=== PATIENT | female | born 1970 | race Caucasian/White ===

== ENCOUNTER 2016-09-29 09:09 | Day surgery (SDC) | payer OTHER ==
[~2016-09-29 09:09] MED LIST: ACETAMINOPHEN 500 MG TABLET PO PRN; ONDANSETRON HCL/PF 2 MG/ML VIAL IV PRN; RINGERS SOLUTION,LACTATED 1,000 ML IV PRN; ROPIVACAINE HCL/PF 40 MG in NORMAL SALINE 16 ML IJ PRN; ceFAZolin SODIUM 1 GM VIAL IV PRN
--- OUTSIDE RECORDS SUMMARY | 2016-09-29 09:12 | XMS REPORT | Continuity of Care Document ---
:1970 Author Organization [facility] ([facility]) Address [address] [place] [address] Phone [phone] Care Team Providers Name Role Phone Provider, No-Primary Care Primary Care Provider Unavailable Source Comments This disclosure is being made pursuant to the Care Everywhere program, applicable federal and state laws, and may not contain all informaitonavailable regarding this patient.[facility] ([facility]) Active Allergies and Adverse Reactions Allergen Noted Date Severity Reactions Comments Acetaminophen Upper Airway blisters inside of Edema,Urticaria (Hives) mouth/throat- severe reaction Codeine Urticaria (Hives),Pruritus,Nausea & Vomiting Hydrocodone Upper Airway blisters inside of Edema,Urticaria (Hives) mouth/throat- severe reaction Meperidine Unknown Patient unsure if she truly is allergic to Demerol. Oxycodone Unknown Penicillins Urticaria (Hives) as child Current Medications Prescription Sig. Disp. Refills Start Date End Date Status ALPRAZOLAM 1 mg tablet 5 03/08/2015 Active ibuprofen PO Active Active Problems Problem Noted Date Conjunctival lesion 03/15/2015 Other conditions of brain 03/15/2006 Pain in thoracic spine 09/06/2005 Lipoma of other skin and subcutaneous tissue 08/23/2005 Social History Tobacco Use Types Packs/Day Years Used Date Current Every Day Smoker Cigarettes 1 15 Smokeless Tobacco: Never Used Alcohol Use Drinks/Week oz/Week Comments Yes Last Filed Vital Signs Vital Sign Reading Time Taken Blood Pressure 151/93 03/15/2015 2:28 PM CDT Pulse 81 03/13/2006 10:58 AM CDT Temperature 37 C (98.6 F) 03/15/2015 2:28 PM CDT Respiratory Rate 16 09/26/2005 10:43 AM [employer] Height 1.575 m (5' 2") 03/13/2006 10:58 AM CDT Weight 108.396 kg (238 lb 15.5 oz) 03/13/2006 10:58 AM CDT Body Mass Index 43.7 03/13/2006 10:58 AM CDT Oxygen Saturation - - Plan of Care Health Maintenance Due Date Last Done Comments Hepatitis B Vaccine (1 of 3 - Primary Series) 1970 Tdap Vaccine 1979 Lipid Disorder Screening 1986 MMR Vaccine 1986 Td Vaccine 1986 Pneumococcal Vaccine (1 of 1 - PPSV23) 1987 Cervical Cancer Screening 1998 Mammogram 2008 Influenza Vaccine: Seasonal (#1) 02/21/2016 Results from Last 3 Months Not on file
[2016-09-29] MEDS ORDERED: ROPIVACAINE HCL IJ ONE (10:12)
[2016-09-29] MEDS ORDERED: BUPIVACAINE HCL/EPINEPHRINE 10 ML VIAL IJ ONE ×2 (11:05)
[2016-09-29 12:31] VITALS: BP 142/81
--- NOTE | 2016-09-29 15:19 | OR ---
Operative Report - Dictated Report Narrative: Date: 09/29/2016 Physician: Chris Samson M.D. Transcriber: Sonido Shaffer PA-C Preoperative diagnosis: Right Knee medial meniscus tear Postoperative diagnosis: Right Knee medial meniscus tear, chondromalacia medial femoral condyle Procedure: Right knee arthroscopy with partial medial meniscectomy, chondroplasty medial femoral condyle Anesthesia: MAC Plus local Complications: None Estimated blood loss: Minimal Tourniquet time: None Specimens: None Retained implants: None Drains: None Indications: Mrs. Feliciano Is a 46 year-old female who has been followed in my clinic with complaints of knee pain consistent with suspected medial joint pathology. Physical exam and diagnostic imaging were consistent with these complaints and concern for medial meniscus pathology. Conservative measures have failed including, but not limited to, passage of time, activity modification, medications, and injections. The risks, benefits, and alternatives were discussed in clinic. The risks being , bleeding, infection, blood clots, nerve, tendon, ligament, blood vessel injury, persistent pain, arthrosis, need for additional procedures, and persistent symptoms. Consent was obtained in the clinic. Procedure: After marking the correct extremity in the preoperative holding area, a timeout was performed in the operating room. IV antibiotics consisting of Ancef were administered prior to the procedure. A well-padded tourniquet was applied to the operative upper thigh. The leg was prepped and draped in a standard sterile fashion. 0.5% Marcaine with epinephrine was infused into the projected portal sites as well as the intra-articular space. A dagmar incision was made for inferior lateral portal. A blunt trocar and cannula was introduced into the knee. The suprapatellar pouch revealed to pathology. The medial patella facet showed grade 2 change. The lateral patella facet showed grade 2 change. The trochlea showed minimal arthrosis. The medial gutter revealed no pathology. The medial joint space was then entered utilizing a lateral post and valgus stress. A spinal needle was utilized for guidance into placement of an anterior medial portal. This was placed just superior to the medial meniscus ensuring that we could reach the posterior aspect of the medial joint space. A dagmar incision was made in the site, and the probe was introduced to the knee. The medial joint space was examined, and the medial femoral condyle showed grade 3 changes with loose chondral flaps. The medial tibial plateau showed grade 2 change. The medial meniscus had a radial tear near the root. The notch was then examined, and the ACL was noted to be intact. The PCL was noted to be intact. The lateral joint space was then examined using a varus force in the figure 4 position. Lateral femoral condyle showed no arthrosis. Lateral tibial plateau showed fissuring. The lateral meniscus showed no tear. The lateral gutter showed no pathology. Having identified the surgical pathology, a series of biters and joshua were utilized in order to debride the root of the medial meniscus over approximately 10% of the circumference over 50 % the depth. The medial femoral condyle was also debrided using shaver down to stable chondral margins. Once it was felt that we adequately addressed the pathology, the knee was thoroughly irrigated. The fluid was evacuated ensuring that we have removed all meniscal, chondral, and any other loose bodies. A final evaluation of the joint showed no additional pathology. The fluid was then evacuated of the knee, and the trocar and camera were removed from the joint. The wounds were closed with interrupted nylon after placing 20 mL of 0.2 % ropivacaine into the joint. Dressings consisting of Xeroform, 4 x 4, ABD, soft roll, and an Leonel were applied. All sponge, needle, blade, and instrument counts were correct prior to closing the wounds. The patient was awoken and transferred to the postanesthesia care unit in stable condition.
== END 2016-09-29 09:10 | disposition home or self-care (01) ==
LOC: AMB 09:09
PROVIDERS: ATTEND Orthopaedic Surgery
PROC: 0SBC4ZZ Excision of Right Knee Joint, Percutaneous Endoscopic Approach (ICD-10-PCS; principal; 2016-09-29 11:35)
DX: M23.203 Derangement of unspecified medial meniscus due to old tear or injury, right knee (principal); M94.261 Chondromalacia, right knee; J44.9 Chronic obstructive pulmonary disease, unspecified; F41.1 Generalized anxiety disorder; F17.200 Nicotine dependence, unspecified, uncomplicated; Z68.38 Body mass index [BMI] 38.0-38.9, adult